=== PATIENT | female | born 1945 | race Caucasian/White ===

== ENCOUNTER 2021-01-11 07:39 | Observation (INO) ==
[~2021-01-11 07:39] MED LIST: Buffered Lidocaine 1% SYRIN 1 ml INTRADERM ONE; Lactated Ringers 1000 ml BAG 1,000 ML IV SCH
[2021-01-11] MEDS ORDERED: Midazolam 5 mg/5 ml VIAL 1 mg/ml 5 ml VIAL (5 mg) ONE (07:50)
[2021-01-11] MEDS ORDERED: ceFAZolin 2 GM in NS PREMIX 2 GM/100 ML BAG IVPB ONE (08:02)
[2021-01-11] MEDS ORDERED: Lidocaine 1% MPF 5 ML VIAL ONE (08:07)
[2021-01-11] MEDS ORDERED: ROPIVACAINE 5 MG/ML 30 ML BTL (0.5%) ONE ×2 (08:07→08:29)
[2021-01-11] MEDS ORDERED: Bupivacaine 0.5% SDV PF 30ML VIAL ONE (08:37)
[2021-01-11] MEDS ORDERED: Phenylephrine IV 10 MG/ML 1 ml VIAL ONE (09:14)
[2021-01-11] MEDS ORDERED: Magnesium Hydroxide LIQ 30 ML UDC PO PRN (09:51)
[2021-01-11] MEDS ORDERED: Ondansetron ODT 4 mg TAB 4 MG TAB PO PRN (09:51)
[2021-01-11] MEDS ORDERED: Morphine 2 MG/ML SYRINGE IV PRN (09:51)
[2021-01-11] MEDS ORDERED: Lactulose 30 ml UDC PO PRN (09:51)
[2021-01-11] MEDS ORDERED: Ondansetron 4 mg VIAL 2 MG/ML 2 ml VIAL IV PRN ×2 (09:51→10:01)
[2021-01-11] MEDS ORDERED: diPHENhydraMINE IV 50 MG/ML 1 ml VIAL (BENADRYL) IV PRN (09:51)
[2021-01-11] MEDS ORDERED: diPHENhydraMINE 25 mg TAB PO PRN (09:51)
[2021-01-11] MEDS ORDERED: fentaNYL 100 mcg/2 ml 50 MCG/ML VIAL IV PRN (10:01)
[2021-01-11] MEDS ORDERED: Acetaminophen IV 1 GM/100ML 100 ML IV PRN (10:01)
[2021-01-11] MEDS ORDERED: Naloxone 0.4 mg VIAL 0.4 mg/ml 1 ml VIAL IV PRN (10:01)
[2021-01-11] MEDS ORDERED: DiMENhydriNATE IV 50 mg/ml 1 ml VIAL IV PUSH PRN (10:01)
[2021-01-11] MEDS ORDERED: Lactated Ringers 1000 ml BAG 1,000 ML IV ONE (13:25)
[2021-01-11] MEDS: Lactated Ringers 1000 ml BAG 1,000 ML IV SCH ×2 (13:30→17:27)
[2021-01-11] MEDS: ceFAZolin 1 GM ADVAN 1 GM in NS 0.9% 50 ML 50 ML IVPB SCH (17:28)
[2021-01-11] MEDS ORDERED: Cholecalciferol (VIT D3) 1,000 unit TAB PO SCH (21:00)
[2021-01-11] MEDS ORDERED: ESZOPICLONE 1 MG PO SCH (21:00)
[2021-01-11] MEDS: Magnesium Hydroxide LIQ 30 ML UDC PO SCH (21:44)
[2021-01-12] MEDS: ceFAZolin 1 GM ADVAN 1 GM in NS 0.9% 50 ML 50 ML IVPB SCH ×2 (01:20→07:53)
[2021-01-12] MEDS: Lactated Ringers 1000 ml BAG 1,000 ML IV SCH (04:09)
[2021-01-12 06:07] LABS: Hematocrit 26 % (35-47); Hemoglobin 9.1 g/dL (12.0-16.0); Mean Platelet Volume 10.8 fL (7.4-10.4); Platelet Count 116 10^3/uL (150-450)
[2021-01-12 06:28] LABS: Calcium 8.4 mg/dL (8.6-10.3); Potassium 3.8 mmol/L (3.5-5.0)
[2021-01-12] MEDS: Magnesium Hydroxide LIQ 30 ML UDC PO SCH (07:54)
[2021-01-12] MEDS ORDERED: Vitamin THERAPEUTIC TAB PO SCH (09:00)
[2021-01-12] MEDS ORDERED: LUTEIN 6 MG PO SCH (09:00)
[2021-01-12 11:32] VITALS: BP 108/52
== END 2021-01-12 13:30 | disposition home or self-care (01) ==
LOC: OR 07:39 → SSU 07:39
PROVIDERS: ADMIT Orthopaedic Surgery Adult Reconstructive Orthopaedic Surgery; ATTEND Orthopaedic Surgery Adult Reconstructive Orthopaedic Surgery

== ENCOUNTER 2022-12-14 10:03 | Observation (INO) ==
[~2022-12-14 10:03] MED LIST changes: +HYDROmorphone 1 MG/1 ML SYRINGE IV PRN; +Naloxone 0.4 mg VIAL 0.4 mg/ml 1 ml VIAL IV PRN; +Ondansetron 4 mg VIAL 2 MG/ML 2 ml VIAL IV PRN
[2022-12-14] MEDS ORDERED: ceFAZolin 2 GM PREMIX 2 GM/50 ML BAG ONE (10:30)
[2022-12-14] MEDS ORDERED: Buffered Lidocaine 1% SYRIN 1 ml ONE (10:31)
[2022-12-14] MEDS ORDERED: Propofol 10 MG/ML 20 ML BTL ONE (10:36)
[2022-12-14] MEDS ORDERED: Midazolam 2 mg/2 ml VIAL 1 mg/ml 2 ml VIAL (2 mg) ONE (10:36)
[2022-12-14] MEDS ORDERED: fentaNYL 100 mcg/2 ml 50 MCG/ML VIAL ONE ×2 (10:36→16:10)
[2022-12-14 11:38] LABS: Rapid COVID-19 Molecular Undetected (Undetected)
[2022-12-14] MEDS ORDERED: Scopolamine 1 mg/72hr PATCH ONE (11:48)
[2022-12-14] MEDS ORDERED: Scopolamine 1 mg/72hr PATCH TRANSDERM SCH (12:00)
[2022-12-14] MEDS ORDERED: Rocuronium 50 mg VIAL 10 mg/ml 5 ml VIAL (50 mg) ONE (12:05)
[2022-12-14] MEDS ORDERED: ROPIVACAINE 5 MG/ML 30 ML BTL (0.5%) ONE (12:50)
[2022-12-14] MEDS ORDERED: HYDROmorphone 0.5 MG/0.5 ML SYRINGE ONE ×3 (13:39→14:32)
[2022-12-14] MEDS ORDERED: Dexamethasone IV 4 MG/ML VIAL 1 ml VIAL ONE (14:17)
[2022-12-14] MEDS ORDERED: Ondansetron 4 mg VIAL 2 MG/ML 2 ml VIAL ONE (14:17)
[2022-12-14] MEDS ORDERED: Ondansetron ODT 4 mg TAB 4 MG TAB PO PRN (15:45)
[2022-12-14] MEDS ORDERED: Magnesium Hydroxide LIQ 30 ML UDC PO PRN (15:45)
[2022-12-14] MEDS ORDERED: Lactulose 30 ml UDC PO PRN (15:45)
[2022-12-14] MEDS ORDERED: Morphine 2 MG/ML SYRINGE IV PRN (15:45)
[2022-12-14] MEDS: fentaNYL 100 mcg/2 ml 50 MCG/ML VIAL IV PRN ×2 (16:11→16:57)
[2022-12-14] MEDS: Lactated Ringers 1000 ml BAG 1,000 ML IV SCH (17:42)
[2022-12-14] MEDS: Magnesium Hydroxide LIQ 30 ML UDC PO SCH (20:44)
[2022-12-14] MEDS ORDERED: Cholecalciferol (VIT D3) 1,000 unit TAB PO SCH (21:00)
[2022-12-14] MEDS: ceFAZolin 1 GM ADVAN 1 GM in NS 0.9% 50 ML 50 ML IVPB SCH (21:57)
[2022-12-15] MEDS: Lactated Ringers 1000 ml BAG 1,000 ML IV SCH (03:53)
[2022-12-15] MEDS: ceFAZolin 1 GM ADVAN 1 GM in NS 0.9% 50 ML 50 ML IVPB SCH ×2 (05:02→12:49)
[2022-12-15 06:53] LABS: Calcium 8.5 mg/dL (8.6-10.3); Creatinine, Serum 0.73 mg/dL (0.51-0.95); Potassium 3.9 mmol/L (3.5-5.0); eGFR CKD-EPI 85.2 (>60)
[2022-12-15] MEDS: Ondansetron 4 mg VIAL 2 MG/ML 2 ml VIAL IV PRN ×2 (07:41→13:42)
[2022-12-15] MEDS: Magnesium Hydroxide LIQ 30 ML UDC PO SCH (07:46)
[2022-12-15 08:51] LABS: Hematocrit 27.9 % (35-45); Hemoglobin 9.7 g/dL (11.5-14.3); Mean Platelet Volume 12.4 fL (7.5-11.2); Platelet Count 148 10^3/uL (150-450)
[2022-12-15] MEDS ORDERED: Vitamin THERAPEUTIC TAB PO SCH (09:00)
[2022-12-15 10:20] VITALS: BP 146/70
== END 2022-12-15 14:10 | disposition home or self-care (01) ==
LOC: OR 10:03 → SSU 10:03
PROVIDERS: ADMIT Orthopaedic Surgery Adult Reconstructive Orthopaedic Surgery; ATTEND Orthopaedic Surgery Adult Reconstructive Orthopaedic Surgery